=== PATIENT | female | born 1950 | race Caucasian/White ===

== ENCOUNTER 2019-05-04 09:57 | Outpatient (REF) | payer MEDICARE, BC, SELFPAY ==
[2019-05-04 21:18] LABS: HCT 42.6 % (36.0-46.0); HGB 14.1 g/dL (12.0-15.5); Mean Corp. HGB Concentration 33.1 g/dL (32.0-36.0); Mean Corpuscular Hemoglobin 31.3 pg (27.0-33.0); Mean Corpuscular Volume 94.5 fL (80-95); Mean Platelet Volume 10.3 fL (8.0-11.0); Platelet Count 277 x1000/uL (130-400); RBC 4.51 m/cumm (4.00-5.20); RBC Distribution Width 13.5 % (11.7-14.6); White Blood Cell Count 5.47 k/cumm (4.4-10.8)
[2019-05-04 21:28] LABS: ALT 25 U/L (14-59); AST 19 U/L (15-37); Albumin 3.5 g/dL (3.4-5.0); Alkaline Phosphatase 64 U/L (46-116); Anion Gap 8.2 mmol/L (3-11); BUN 18 mg/dL (7-18); Bilirubin, Total 0.8 mg/dL (0.2-1.0); CO2 27.8 mmol/L (21.0-32.0); CREATININE 0.79 mg/dL (0.55-1.02); Calcium 9.1 mg/dL (8.5-10.1); Calculated LDL 154 mg/dL; Chloride 106 mmol/L (98-107); Cholesterol 248 mg/dL (50-200); Glucose 86 mg/dL (70-100); HDL Cholesterol 82 mg/dL (40-60); Sodium 142 mmol/L (136-145); Total Protein 6.5 g/dL (6.4-8.2); Triglyceride 63 mg/dL (30-150)
== END 2019-05-04 10:17 ==
LOC: NCHCN 09:57
PROVIDERS: PCP Family Medicine; Visit Provider Family Medicine
DX: E78.5 Hyperlipidemia, unspecified (principal); R19.7 Diarrhea, unspecified
CPT/HCPCS: 80053; 80061; 85027

== ENCOUNTER 2019-07-05 02:21 | Outpatient (CLI) | payer MEDICARE, BC, SELFPAY ==
--- NOTE | 2019-07-05 09:12 | DI.MAMMO_ITS ---
EXAM: MG MAMMO SCREENING 60 MIN DUR CLINICAL HISTORY: SCREENING, PREVENTIVE HEALTH CARE Z00.00, PERS. HX BREAST CANCER Z85.3 TECHNIQUE: Bilateral full field digital CC and MLO mammographic images were obtained with 3D tomosyn thesis and utilizing computer aided detection (CAD). COMPARISON: Available for comparison. FINDINGS: Masses/Architectural Distortion: None seen. Surgical clips are seen in the left axilla. The patient is status post right lumpectomy. Microcalcifications: No suspicious pleomorphic-type are seen. IMPRESSION: 1. No significant interval change with no specific features of malignancy noted. 2. Unless there is more urgent need, screening mammography is recommended, as per [employer] [employer] guidelines. BI-RADS Cat 2 - Benign Findings Breast Density - Category C - Heterogeneously dense The findings were discussed with the patient on the date of the examination. The mammogram demonstrates the patient's breast tissue is dense. Dense breast tissue is very common a nd is not abnormal but dense breast tissue can make it harder to find cancer on a mammogram. Also, de nse breast tissue may increase their breast cancer risk. This information about the result of the [facility] mogram report was provided to the patient to raise their awareness. Use this report when you speak wi th the patient about their risks for breast cancer, which includes their family history. At that time , you may recommend for more screening tests (Ultrasound or MRI) as they might be useful based on the ir risk. A negative radiographic report should not delay biopsy if a dominant or clinically suspicious mass is present. Up to ten percent of cancers are not identified on mammography. A negative report may reinforce clinical impression. Adenosis and dense breasts may obscure an underlying neoplasm. False positive reports average 6 to 10%. Patient will receive a letter notifying them of these results.
== END 2019-07-05 02:41 ==
PROVIDERS: PCP Family Medicine; Visit Provider Family Medicine
DX: Z12.31 Encounter for screening mammogram for malignant neoplasm of breast (principal); Z85.3 Personal history of malignant neoplasm of breast; Z98.890 Other specified postprocedural states
CPT/HCPCS: 77063; 77067

== ENCOUNTER → 2020-01-04 10:00 | Outpatient (BNVA) | payer MEDICARE, BC, SELFPAY | PROVIDERS: PCP Family Medicine; Referring Provider Family Medicine; Visit Provider Surgery | DX: Z12.11 Encounter for screening for malignant neoplasm of colon (principal) | CPT/HCPCS: 99202 ==

== ENCOUNTER 2020-01-07 08:32 | Outpatient (CLI) | payer MEDICARE, BC, SELFPAY ==
[2020-01-08 03:21] LABS: COVID-19 RT-PCR UVMMC Result Negative (Negative)
== END 2020-01-07 08:52 ==
PROVIDERS: PCP Family Medicine; Visit Provider Surgery
DX: Z11.59 Encounter for screening for other viral diseases (principal)
CPT/HCPCS: U0003

== ENCOUNTER 2020-01-10 10:51 | Day surgery (SDC) | payer MEDICARE, BC, SELFPAY ==
[2020-01-10 10:58] VITALS: BP 115/56; PULSE 73; RESP 16; TEMP 37; O2SAT 100
[2020-01-10] MEDS: Lactated Ringers 1,000 ML 100 ML IV (11:22)
--- NOTE | 2020-01-10 13:12 | W.PM.DSUDISC ---
Discharge Plan Disposition Patient Disposition: HOME Condition: Good Discharge Details Reason For Visit: colon scope Attending Provider: Hortencia Chandler Primary Care Provider: Loan Ward Home Meds and New Rx's Prescriptions: No Action Vitamin D3 4,000 unit capsule 4,000 unit PO USEASDIRECTD RF: 0 ammonium lactate 12 % lotion 1 applic TP DAILY RF: 0 Discharge Instructions Additional Instructions: Findings:mild diverticular Dx. follow high fiber diet. avoid constipation adn straining to move bowels Follow up:none required. The patient does not require further Colon scopes, unless they develop changes in bowel habits or other new gastrointestinal complaints. Please call if you develop: fevers >101.5 Nausea or Vomiting Abdominal pain that is not transient DAY SURGERY UNIT POST COLONOSCOPY INSTRUCTIONS 1. Because there will be medication in your system for the next 24 hours, you may feel a little sleepy. Your coordination will be affected. Therefore: a. Do not drive or operate dangerous equipment for 24 hours. b. Do not drink alcohol beverages for 24 hours (not even beer). c. Plan to go home and rest for the day. 2. Generally there are no restrictions on your activity after a day or so has gone by, but you may feel a bit fatigued for a few days. 3 After you arrive home you may have a light meal and return to a normal diet as you can tolerate it without feeling sick to your stomach. 4. After surgery, you may feel pain or discomfort. This should be only transient, but if it persists please contact your doctor. 5. If there are any questions regarding the findings of your procedure, please feel free to contact your doctor. 6. If you are unable to contact your doctor with a problem, contact the hospital at [phone]. 7. Continue all your regular medications unless directed otherwise. I understand the above instructions and have no questions. Signature of Patient or Responsible Adult Escort Date/Time Name of Responsible Adult Escort Signature of Nurse Date/Time Activity:: no strenuous activity or lfiting over 20#'s x 24 hrs Diet:: small light meals x 24 hrs d Discharge Orders Discharge Orders: Discharge Order (Routine); Ordered 01/10/20 Ordered By: Hortencia Chandler
--- NOTE | 2020-01-10 13:13 | W.COLOREPORT ---
Date of service: 01/10/20 Time of Service: 13:13 Colonoscopy Report Date of procedure: 01/10/20 Pre-op diagnosis general: CRC screen Post-op diagnosis procedure note: other (mild diverticular Dx confined to sigmoid ) Procedure: CE Surgeon: Hortencia Chandler Anesthesia proc note operative: MAC Estimated blood loss (mL): 0 Pathology: none sent Complications: None Disposition: same day Prep: Miralax/Dulcolax Procedure Description: After informed consent was obtained the patient was taken to the procedure room and placed in a left decubitous position. Monitors were applied and a time out was done. The patients name, date of , procedure, allergies to medications and metal in their body was reviewed. The patient was then sedated. Once sedated and comfortable a rectal exam was done. External exam was normal. Internal exam revealed a normal sphincter tone and no palpable masses. The scope was then introduced and retrofelexed. No internal hemorrhoids were identified. The scope was then advanced to the cecum w/out difficulty. The TI and appendiceal orifice were identified. The prep was good. The scope was then slowly retracted over 8 minutes back into the rectum. Polyps- no. Mild diverticula confined to sigmoid colon. No active bleeding or infections. The scope was removed and the patient was woken up and taken back to Same day surgery in stable condition. The patient tolerated the procedure well and there were no immediate complications. Follow up: The patient does not require further Ce's unless they develop changes in bowel habits or other new gastrointestinal complaints.
[2020-01-10 13:45] VITALS: BP 113/59; PULSE 79; RESP 18; TEMP 36.6; O2SAT 97
== END 2020-01-10 14:35 | disposition home or self-care (01) ==
PROVIDERS: PCP Family Medicine; Visit Provider Surgery
PROC: 0DJD8ZZ Inspection of Lower Intestinal Tract, Via Natural or Artificial Opening Endoscopic (ICD-10-PCS; CPT 45378; principal; 2020-01-10 11:00)
DX: Z12.11 Encounter for screening for malignant neoplasm of colon (principal); K57.30 Diverticulosis of large intestine without perforation or abscess without bleeding
CPT/HCPCS: G0121; J2001

== ENCOUNTER 2021-08-19 01:02 | Outpatient (CLI) | payer MEDICARE, SELFPAY ==
--- NOTE | 2021-08-19 09:30 | DI.MAMMO_ITS ---
Exam(s) MG MAMMO SCREENING 60 MIN DUR EXAM: MG MAMMO SCREENING 60 MIN DUR CLINICAL HISTORY: SCREENING, Z12.39, H/O BREAST CA TECHNIQUE: Mammograms were interpreted according to the usual protocol including computer analysis w [employer] CAD system, tomosynthesis and C-view imaging. COMPARISON: FINDINGS: Patient has had a prior lumpectomy for breast carcinoma. This was presumably a right lumpectomy. No mass or clumped microcalcification identified in either breast. Current examination is compared wit h previous examinations including June 2019 and there has been no gross interval change in appear ance in comparison with the prior studies. IMPRESSION: No specific evidence of malignancy at this time. Routine screening examinations are suggested at yea rly intervals due to the history of breast carcinoma. BI-RADS Category 1 - Negative Breast Density - Category B - Scattered areas of fibroglandular density
== END 2021-08-19 01:22 ==
PROVIDERS: PCP Family Medicine; Visit Provider Family Medicine
DX: Z12.31 Encounter for screening mammogram for malignant neoplasm of breast (principal); Z85.3 Personal history of malignant neoplasm of breast; Z98.890 Other specified postprocedural states
CPT/HCPCS: 77063; 77067

== ENCOUNTER 2022-08-24 00:41 | Outpatient (CLI) | payer MEDICARE, SELFPAY ==
--- NOTE | 2022-08-24 11:02 | DI.MAMMO_ITS ---
Exam(s) MG MAMMO SCREENING 60 MIN DUR EXAM: MG MAMMO SCREENING 60 MIN DUR CLINICAL HISTORY: SCREENING, PERSONAL H/O BREAST CA,Z85.3.H/O LUMPECTOMY TECHNIQUE: Bilateral full field digital CC and MLO mammographic images were obtained with 3D tomosyn thesis and utilizing computer aided detection (CAD). COMPARISON: Available for comparison. FINDINGS: Masses/Architectural Distortion: The nodule seen in the posterior central right breast is unchanged. The patient is status post right lumpectomy. No suspicious masses or areas of architectural distort ion are seen. Microcalcifications: No suspicious pleomorphic-type are seen. Skin Thickening/Nipple Retraction: None. IMPRESSION: 1. No significant interval change with no specific features of malignancy noted. 2. Unless there is more urgent need, screening mammography is recommended, as per [place] [employer] guidelines. BI-RADS Category 2 - Benign Findings Breast Density - Category B - Scattered areas of fibroglandular density Breast density category C or D implies that the patient has dense breast tissue. Dense breast tissue is very common and is not abnormal but dense breast tissue can make it harder to find cancer on a ma mmogram. Also, dense breast tissue may increase their breast cancer risk. This information about the result of the mammogram report was provided to the patient to raise their awareness. Use this report when you speak with the patient about their risks for breast cancer, which includes their family hist ory. At that time, you may recommend for more screening tests (Ultrasound or MRI) as they might be us eful based on their risk. A negative radiographic report should not delay biopsy if a dominant or clinically suspicious mass is present. Up to ten percent of cancers are not identified on mammography. A negative report may reinforce clinical impression. Adenosis and dense breasts may obscure an underlying neoplasm. False positive reports average 6 to 10%. Patient will receive a letter notifying them of these results.
== END 2022-08-24 01:01 ==
PROVIDERS: PCP Family Medicine; Visit Provider Family Medicine
DX: Z12.31 Encounter for screening mammogram for malignant neoplasm of breast (principal)
CPT/HCPCS: 77063; 77067

== ENCOUNTER 2022-09-22 15:11 | Outpatient (REF) | payer MEDICARE, SELFPAY ==
[2022-09-22 15:51] LABS: Abs Immature Grans 0.03 10^3/uL (0.0-0.06); Absolute Basophil Count 0.05 10^3/uL (0.0-0.2); Absolute Eosinophil Count 0.14 10^3/uL (0.0-0.7); Absolute Lymphocyte Count 2.19 10^3/uL (1.2-3.4); Absolute Monocyte Count 0.66 10^3/uL (0.1-0.8); Absolute Neutrophil Count 4.89 10^3/uL (1.2-6.7); Basophils % 0.6; Eosinophils % 1.8; HCT 43.7 % (36.0-46.0); HGB 14.4 g/dL (11.2-15.7); Immature Grans % 0.4; Lymphocytes % 27.5; MCV 94 fL (80-95); MPV 10.1 fL (8.0-11.0); Monocytes % 8.3; Neutrophils % 61.4; Platelet Count 306 10^3/uL (130-400); RBC 4.64 10^6/uL (3.93-5.22); RDW 13.7 % (11.7-14.6); RDW-SD 47.5 fL; WBC 7.96 10^3/uL (4.4-10.8)
[2022-09-22 15:54] LABS: ESR 16 mm/hr (0-30)
[2022-09-22 16:01] LABS: ALT 35 U/L (14-59); AST 30 U/L (15-37); Albumin 3.8 g/dL (3.4-5.0); Alkaline Phosphatase 77 U/L (46-116); Anion Gap 6.1 mmol/L (3-11); BUN 17 mg/dL (7-18); Bilirubin, Total 0.5 mg/dL (0.2-1.0); CO2 29.9 mmol/L (21.0-32.0); CREATININE 0.9 mg/dL (0.55-1.02); Calcium 9.8 mg/dL (8.5-10.1); Chloride 106 mmol/L (98-107); Estimated GFR 67.08 (mL/min/1.73m2); Glucose 133 mg/dL (74-106); Potassium 4.8 mmol/L (3.5-5.1); Sodium 142 mmol/L (136-145)
== END 2022-09-22 15:12 | disposition home or self-care (01) ==
LOC: NCHCN 15:11
PROVIDERS: PCP Family Medicine; Visit Provider Family Medicine
DX: K62.89 Other specified diseases of anus and rectum (principal)
CPT/HCPCS: 80053; 85652; 85025

== ENCOUNTER → 2023-06-22 11:52 | Outpatient (CLI) | payer MEDICARE, SELFPAY ==
--- NOTE | 2023-06-22 14:54 | DI.RAD_ITS ---
Exam(s) XR CERVICAL SPINE COMP 4-5V EXAM: XR CERVICAL SPINE COMP 4-5V CLINICAL HISTORY: ACUTE NECK PAIN, M54.2. TECHNIQUE: 2D digital imaging was performed. Five images were obtained. AP, odontoid, lateral and bi lateral oblique images were obtained. COMPARISON: No exams were available for comparison FINDINGS: The odontoid is intact. The lateral masses are well aligned. There is mild reversal of the normal ce rvical lordosis centered at C5. There is disc space narrowing at C4-5, C5-6 and C6-C7. Endplate oste ophytes are seen at C5-C6. No acute fracture or subluxation is present. No significant neural foramin al stenosis is present. The cervical thoracic junction is well maintained. The prevertebral soft ti ssues are unremarkable. Lung apices are clear. IMPRESSION: Degenerative changes seen in the cervical spine. DATA REPOSITORY: RADIATION DOSE DELIVERED:
== END ==
PROVIDERS: PCP Family Medicine; Visit Provider Family Medicine
DX: M48.02 Spinal stenosis, cervical region (principal); M25.78 Osteophyte, vertebrae
CPT/HCPCS: 72050

== ENCOUNTER → 2023-08-10 00:57 | Outpatient (CLI) | payer MEDICARE, SELFPAY ==
[2023-08-10 12:35] LABS: CREATININE 0.9 mg/dL (0.55-1.02); Estimated GFR 66.67 (mL/min/1.73m2)
[2023-08-10] MEDS: Gadoterate meglumine 20 ML VIAL 10 ML IVP (12:38)
--- NOTE | 2023-08-10 13:00 | DI.MRI_ITS ---
Exam(s) MR IAC BRAIN WO/W EXAM: MR IAC BRAIN WO/W CLINICAL HISTORY: Left-sided sensorineural hearing loss,H90.3,h93.13,bilat tinnitus TECHNIQUE: Multiplanar multisequence MRI of the brain was performed. Both noninfused and contrast i nfused sequences were performed. Additional dedicated IAC sequences were performed IV Contrast injected was 10 cc Dotarem. COMPARISON: No exams were available for comparison FINDINGS: CEREBRAL PARENCHYMA: No evidence of intracranial hemorrhage, mass effect nor shift of midline structu re. No extraaxial fluid collections. Ventricles are not enlarged nor shifted. There is no significant focal signal abnormality in the cerebellar hemispheres nor within the kathrine, m idbrain, and thalami. There is no abnormal signal abnormality in the periventricular white matter. IAC's: There are no masses in the cerebellopontine angles and no enhancing intra canalicular acoustic neuroma-schwannoma. The 7th and 8th cranial nerves appear unremarkable within the bilateral interna l auditory canals. DWI: No areas of restricted diffusion to suggest acute ischemic event. SWI: No microhemorrhages evident. There are no ring enhancing lesions in the brain. There is no abnormal meningeal enhancement. PITUITARY GLAND: No mass nor parasellar abnormality. No obvious abnormality in the cavernous sinuses. FLOW VOIDS: The expected flow void are noted. No evidence of obvious aneurysm nor obvious vascular ma lformation. PARANASAL SINUSES: The visualized paranasal sinuses appear unremarkable. ORBITS: No obvious abnormal findings. IMPRESSION: 1. No significant intracranial findings on this MRI scan of the brain. 2. No abnormal enhancing intracranial findings. There are no ring enhancing lesions in the brain and there is no abnormal meningeal enhancement. 3. No evidence of acoustic neuroma-schwannoma. DATA REPOSITORY:
== END ==
PROVIDERS: PCP Family Medicine; Visit Provider Otolaryngology
DX: H90.3 Sensorineural hearing loss, bilateral (principal); H93.13 Tinnitus, bilateral
CPT/HCPCS: 70553; 82565

== ENCOUNTER 2023-08-25 03:25 | Outpatient (CLI) | payer MEDICARE, SELFPAY ==
[2023-08-29 11:18] LABS: Lyme Ab w Rflx to Lyme Confirm Negative (Negative)
[2023-08-30 00:51] LABS: Anaplasma phagocytophilum Negative (Negative); B. miyamotoi PCR Negative (Negative); Babesia divergens/MO-1 Negative (Negative); Babesia duncani Negative (Negative); Babesia microti Negative (Negative); Ehrlichia chaffeensis Negative (Negative); Ehrlichia ewingii/canis Negative (Negative); Ehrlichia muris eauclairensis Negative (Negative)
== END 2023-08-25 03:26 | disposition home or self-care (01) ==
LOC: LBO 03:25
PROVIDERS: PCP Family Medicine; Visit Provider Otolaryngology
DX: H90.3 Sensorineural hearing loss, bilateral (principal); H93.13 Tinnitus, bilateral
CPT/HCPCS: 36415; 87798; 86618

== ENCOUNTER 2023-10-26 16:40 | Outpatient (REF) | payer MEDICARE, SELFPAY ==
[2023-10-26 21:13] LABS: Clarity Clear (Clear)
[2023-10-26 21:14] LABS: Bilirubin Color Interference (Negative); Blood Color Interference (Negative); Glucose Color Interference mg/dL (Negative); Ketones Color Interference mg/dL (Negative); Leukocyte Esterase Color Interference (Negative); Nitrite Color Interference (Negative); Urobilinogen Color Interference mg/dL (Up to 0.2)
[2023-10-26 21:27] LABS: Bacteria Negative HPF (Negative); C & S Indicated? No; Crystals Mod Calcium Oxalate HPF (Negative); Epithelial Cells Negative HPF (Negative); Mucus Negative (Negative); RBC 0-2 HPF (0-2); WBC Negative HPF (0-5)
== END 2023-10-26 16:41 | disposition home or self-care (01) ==
LOC: NCHCN 16:40
PROVIDERS: PCP Family Medicine; Visit Provider Family Medicine
DX: R30.0 Dysuria (principal)
CPT/HCPCS: 81003; 81015

== ENCOUNTER 2024-05-22 15:16 | Outpatient (REF) | payer MEDICARE, SELFPAY ==
--- OUTSIDE RECORDS SUMMARY | 2024-05-22 15:27 | XMS_ITS | Encounter Summary ---
[place] [address] Care Team Providers Care Harp Maker Name Role Phone Hi Valenzuela MD Primary Care Provider [phone] Encounter Details Date Type Department Care Team (Late st Contact Info) Description 04/24/2024 Telephone [place] [phone] Viola Parsons Social History Tobacco Use Types Packs/Day Years Used Date Smoking Tobacco: Never Smokeless Tobacco: Never Sex and Gender Information Value Date Recorded Sex Assigned at Not on file Gender Identity Not on file Sexual Orientation Not on file documented as of this encounter Miscellaneous Notes * Telephone Encounter - Viola Parsons - 04/24/2024 9:13 AM EDT Called and spoke to patient at [phone] calling regarding fuv with Dr. Bear booked for 06/04 - we do need to reschedule as he will be in the operating room this day Testing left as scheduled Follow up moved to next available that works for patient: Future Appointments Date Time Provider Department Center 06/04/2024 9:30 AM Ailyn Chun AUD [facility] AUD[facility] 06/04/2024 12:30 PM Jeni Mcdonnell AUD [facility] AUD[facility] 07/04/2024 10:20 AM Parth Bear MD [facility] ELIAS [facility] documented in this encounter Plan of Treatment Upcoming Encounters Date Type Department Care Team (Late st Contact Info) Description 06/04/2024 9:30 AM EDT Office Visit Audiology at [address] [phone] Ailyn Chun AUD [facility] [place] [address] 06/04/2024 12:30 PM EDT Office Visit Audiology at [address] [phone] eJni Mcdonnell [facility] [place] [address] 07/04/2024 10:20 AM EST Office Visit [place] [phone] Parth Bear MD [facility] [place] [address] documented as of this encounter Visit Diagnoses Not on filedocumented in this encounter Care Teams Harp Maker Relationship Specialty Start Date End Date Hi Valenzuela MD [address] [place] [address] PCP - General Family Medicine 08/26/23 documented as of this encounter
--- OUTSIDE RECORDS SUMMARY | 2024-05-22 15:27 | XMS_ITS | Encounter Summary ---
Author Organization [facility] Address [address] [place] [address] Care Team Providers Care Front Desk Name Role Phone Unavailable Primary Care Provider Unavailabl e Encounter Details Date Type Department Care Team (Latest Contact Info) Description 11/20/2013 14:15 EDT - 11/20/2013 23:59 EDT Hospital Encounter [facility] [address] [place] [address] Unknown, Provider, Discharge Disposition: Home or Self Care Social History Tobacco Use Types Packs/Day Years Used Date Smoking Tobacco: Never Assessed Sex and Gender Information Value Date Recorded Sex Assigned at Not on file Gender Identity Not on file Sexual Orientation Not on file documented as of this encounter Discharge Disposition Disposition Code Departure Means Destination Home or Self Retirement documented in this encounter Plan of Treatment Not on file documented as of this encounter Visit Diagnoses Not on filedocumented in this encounter
--- OUTSIDE RECORDS SUMMARY | 2024-05-22 15:27 | XMS_ITS | Encounter Summary ---
Author Organization [facility] [place] [address] Care Team Providers Care Loom Operator Name Role Phone Amador Holland MD Primary Care Provider Encounter Details Date Type Department Care Team (Late st Contact Info) Description 08/10/2023 Ancillary Procedure Radiology Library at [facility] [place] [phone] Amador Holland MD [address] [phone] Social History Tobacco Use Types Packs/Day Years Used Date Smoking Tobacco: Never Smokeless Tobacco: Never Sex and Gender Information Value Date Recorded Sex Assigned at Not on file Gender Identity Not on file Sexual Orientation Not on file documented as of this encounter Plan of Treatment Upcoming Encounters Date Type Department Care Team (Late st Contact Info) Description 06/04/2024 9:30 AM EDT Office Visit Audiology at [address] [phone] Ailyn Chun, [facility] [place] [address] 06/04/2024 12:30 PM EDT Office Visit Audiology at [address] [phone] Jeni Mcdonnell [facility] [place] [address] 07/04/2024 10:20 AM EST Office [place] [phone] Parth Bear MD [facility] [place] [address] documented as of this encounter Procedures Procedure Name Priority Date/Time Associated Diagnosis Comments FILM LIBRARY STORAGE ONLY MR HEAD Routine 08/10/2023 12:00 AM EST documented in this encounter Results * Film Library- Storage Only MR Head (08/10/2023 12:00 AM EST) Narrative [facility] - 08/24/2023 3:12 PM EST This exam is auto-finalizing. It's purpose is for storage only. Amador Holland MD IMG FILM LIBRARY ORD ERABLES [place], [place] documented in this encounter Visit Diagnoses Not on filedocumented in this encounter Care Teams Loom Operator Relationship Specialty Start Date End Date Amador Holland MD [address] [address] PCP - General 07/07/10 08/25/23 documented as of this encounter
--- OUTSIDE RECORDS SUMMARY | 2024-05-22 15:27 | XMS_ITS | Encounter Summary ---
Author Organization [facility] Address [address] [place] [address] Care Team Providers Care Property And Equipment Clerk Name Role Phone Kimberlee Watters MD Primary Care Provider Unavailab le Encounter Details Date Type Department Care Team (Latest Contact Info) Description 06/04/2015 13:02 EDT - 06/04/2015 23:59 EDT Hospital Encounter [facility] [address] [place] [address] Unknown, Provider, Discharge Disposition: Home or Self Care Social History Tobacco Use Types Packs/Day Years Used Date Smoking Tobacco: Never Assessed Sex and Gender Information Value Date Recorded Sex Assigned at Not on file Gender Identity Not on file Sexual Orientation Not on file documented as of this encounter Discharge Disposition Disposition Code Departure Means Destination Home or Self [facility]itent[facility] documented in this encounter Plan of Treatment Not on file documented as of this encounter Visit Diagnoses Not on filedocumented in this encounter Care Teams Property And Equipment Clerk Relationship Specialty Start Date End Date Kimberlee Watters MD PCP - General 11/29/13 06/07/16 documented as of this encounter
--- OUTSIDE RECORDS SUMMARY | 2024-05-22 15:27 | XMS_ITS | Encounter Summary ---
Author Organization [facility] Address [address] [place] [address] Care Team Providers Care Produce Weigher Name Role Phone Kimberlee Watters MD Primary Care Provider Marissa Gautam Primary Care Provider [phone] Encounter Details Date Type Department Care Team (Late st Contact Info) Description 12/13/2011 Historical Results Only [facility] Lab - Main [address] [phone] Amador Truong MD [address] [place] [phone] Social History Tobacco Use Types Packs/Day Years Used Date Smoking Tobacco: Never Assessed Sex and Gender Information Value Date Recorded Sex Assigned at Not on file Gender Identity Not on file Sexual Orientation Not on file documented as of this encounter Plan of Treatment Not on file documented as of this encounter Procedures Procedure Name Priority Date/Time Associated Diagnosis Comments PAP TEST Routine 12/13/2011 documented in this encounter Results * PAP TEST (12/13/2011) 12/13/2011 12/14/2011 9:5 0 EDT Narrative [facility] - 12/16/2011 15:59 EDT Blind pap - Cervical cells may or may not be present. ----- ------- Name: BOBANAID Wyatt ? : 46 ?Age/Sex: 69/F ?Unit#: [id number] ? Loc: LAB.OPX ? Status: REG REF ?? Reg Date: 12/13/11 ? Pt.Phone Number: ? ----- ------- Specimen: [id number] ?STATUS: SOUT ?Spec Date:12/13/11 ? Physician Copies: ?Amador Truong MD ?? Tissues: ? Cervical/Endo Pap ?Irina Lindsay MD ? CPT: 54699 ?? Units: ??1 ----- ------- ? CYTOLOGY DIAGNOSIS SPECIMEN ADEQUACY: ?Satisfactory for evaluation. Transformation zone component ABSENT. GENERAL CATEGORIZATION: ?Negative for Intraepithelial Lesion or Malignancy DESCRIPTIVE DIAGNOSIS: ? Negative for Intraepithelial Lesion or Malignancy. RECOMMENDATIONS/COMMENTS: ?None. ?? PREOP DX/CLINICAL HISTORY ?BLIND PAP DONE ----- ------- ORDER QUERIES: LMP: ? - ? Post ?PREVIOUS ATYPICAL: N BCP/HRT? ?? Rad Rx? ?? IUD?PAP PLUS HPV? N ??REFLEX TO HR-HPV IF ASCUS ?? REFLEX TO HPV 16/18 IF HPV POS/PAP NEG ?? HPV REGARDLESS?RFLX HPV IF LSIL ?? IF ASCUS DO HPV? Y Signed Yanira Franco CT(ASCP) 12/16/11 By the signature above, the attending physician certifies that he/she has personally conducted a gross and/or microscopic examination of the described specimens and rendered or confirmed the above diagnosis. Test Performed by [facility], [address] [id number] Art Framing Manager: Isa Seaman MD PHD ----- ------- Amador Truong MD PATHOLOGY ORDERABLES [facility] documented in this encounter Visit Diagnoses Not on filedocumented in this encounter Care Teams Produce Weigher Relationship Specialty Start Date End Date Kimberlee Watters MD PCP - General 11/29/13 06/07/16 Marissa Elliott PA PCP - General 06/08/16 06/01/21 documented as of this encounter
--- OUTSIDE RECORDS SUMMARY | 2024-05-22 15:27 | XMS_ITS | Encounter Summary ---
Author Organization [facility] [place] [address] Care Team Providers Care Network Planner Name Role Phone Hi Valenzuela MD Primary Care Provider [phone] Encounter Details Date Type Department Care Team (Late st Contact Info) Description 10/11/2023 Telephone [place] [phone] Vickie Allred RN Social History Tobacco Use Types Packs/Day Years Used Date Smoking Tobacco: Never Smokeless Tobacco: Never Sex and Gender Information Value Date Recorded Sex Assigned at Not on file Gender Identity Not on file Sexual Orientation Not on file documented as of this encounter Miscellaneous Notes * Telephone Encounter - Vickie Allred RN - 10/11/2023 3:59 PM EST Patient left VM asking which pharmacy her prescription for the triamterene- hydroCHLOROthiazide (Dyazide) 37.5-25 mg capsule was sent to? Attempt to call patient back. VM left stating prescription sent to [facility]. documented in this encounter Plan of Treatment Upcoming Encounters Date Type Department Care Team (Late st Contact Info) Description 06/04/2024 9:30 AM EDT Office Visit Audiology at [address] [phone] Ailyn Chun [facility] [place] [address] 06/04/2024 12:30 PM EDT Office Visit Audiology at [address] [phone] [facility] [place] [address] 07/04/2024 10:20 AM EST Office Visit [place] [phone] [facility] [place] [address] documented as of this encounter Visit Diagnoses Not on filedocumented in this encounter Care Teams Network Planner Relationship Specialty Start Date End Date Hi Valenzuela MD [address] [place] [address] PCP - General Family Medicine 08/26/23 documented as of this encounter
--- OUTSIDE RECORDS SUMMARY | 2024-05-22 15:27 | XMS_ITS | Encounter Summary ---
Author Organization [facility] Address [address] [place] [address] Care Team Providers Care Supervisor Real Estate Office Name Role Phone Loan Ward MD Primary Care Provider [phone] Encounter Details Date Type Department Care Team (Late st Contact Info) Description 08/26/2023 Lab Requisition [facility] Pathology & Laboratory Medicine - [address] [address] Outr Resulting Lab, Provider Social History Tobacco Use Types Packs/Day Years Used Date Smoking Tobacco: Never Alcohol Use Standard Drinks/Week Comments Yes 0 (1 standard drink = 0.6 oz pur e alcohol) Sex and Gender Information Value Date Recorded Sex Assigned at Not on file Gender Identity Not on file Sexual Orientation Not on file documented as of this encounter Plan of Treatment Not on file documented as of this encounter Procedures Procedure Name Priority Date/Time Associated Diagnosis Comments LYME AB Routine 08/25/2023 13:21 EST documented in this encounter Results * LYME AB (08/25/2023 13:21 EST) Lyme Ab Negative Negative 08/29/2023 11:13 EST [facility] Blood VENOUS BLOOD / Unknown 08/25/2023 13:21 EST 08/26/2023 17:49 EST Provider Outr Resulting Lab IMMUNOLOGY A ND SEROLOGY ORDERABLES [facility] [address] [place] [address] documented in this encounter Visit Diagnoses Not on filedocumented in this encounter Care Teams Supervisor Real Estate Office Relationship Specialty Start Date End Date Loan Ward MD [address] [place] [phone] PCP - General Family Medicine - Primary Care 06/02/21 documented as of this encounter
--- OUTSIDE RECORDS SUMMARY | 2024-05-22 15:27 | XMS_ITS | Clinical Summary ---
Author Organization [facility] Address [facility] [place] [address] Care Team Providers Care Aviation All Source Intelligence Name Role Phone Hi Valenzuela MD Primary Care Provider [phone] Allergies Active Allergy Reactions Criticality Noted Date Comments Zolpidem 06/07/2016 Medications Medication Sig Dispensed Refills Start Date End Date Status fish oil-omega-3 fatty acids 1,000 mg Capsule Take 2 g by mouth daily. Active cholecalciferol, Vitamin D3, 5,000 unit Tablet Take by mouth. Active cetirizine (ZYRTEC) 10 mg Tablet Take 10 mg by mouth daily. Active diphenhydrAMINE (BENADRYL) 25 mg Capsule Take 25 mg by mouth every 6 hours as needed for Itching. Active valACYclovir (Valtrex) 1 gram tablet 09/26/2023 Active triamterene-hydroCHLO ROthiazide (Dyazide) 37.5-25 mg capsule Take 1 capsule by mouth every morning. 90 tablet 3 09/28/2023 Active Active Problems No known active problems Encounters Date Type Department Care Team Description 04/24/2024 Telephone [place] [phone] Viola Parsons from Last 3 Months Social History Tobacco Use Types Packs/Day Years Used Date Smoking Tobacco: Never Smokeless Tobacco: Never Sex and Gender Information Value Date Recorded Sex Assigned at Not on file Gender Identity Not on file Sexual Orientation Not on file Last Filed Vital Signs Vital Sign Reading Time Taken Comments Blood Pressure 119/52 02/08/2018 10:49 AM EDT Pulse 62 02/08/2018 10:49 AM EDT Temperature - - Respiratory Rate - - Oxygen Saturation - - Inhaled Oxygen Concentration - - Weight 52.9 kg (116 lb 9.6 oz) 09/28/2023 8:57 A M EST Height 162.6 cm (5' 4) 09/28/2023 8:57 AM EST Body Mass Index 20.01 09/28/2023 8:57 AM EST Plan of Treatment Upcoming Encounters Date Type Department Care Team (Late st Contact Info) Description 06/04/2024 9:30 AM EDT Office Visit Audiology at [address] [phone] Ailyn Chun, [facility] [place] [address] 06/04/2024 12:30 PM EDT Office Visit Audiology at [address] [phone] Jeni Mcdonnell [facility] [place] [address] 07/04/2024 10:20 AM EST Office Visit [place] [phone] Parth Bear MD [facility] [place] [address] Health Maintenance Due Date Last Done Comments Hepatitis C Screening 1968 Tetanus/Diphtheria/Pertussis Vaccines (1 - Tdap) 05/03 Zoster vaccine (1 of 2) 1998 Advance Directive 2003 Bone Density Scan 2013 Pneumoccocal Vaccine: 65+ (1 of 1 - PCV) 2013 Covid-19 Vaccine (1 - 2022- season) 2024 Influenza (Flu) vaccine (1 o f 1 - Influenza standard series) 04/15/2024 Care Teams Aviation All Source Intelligence Relationship Specialty Start Date End Date Hi Valenzuela MD [address] [place] [address] PCP - General Family Medicine 08/26/23
--- OUTSIDE RECORDS SUMMARY | 2024-05-22 15:27 | XMS_ITS | Encounter Summary ---
Author Organization [facility] Address [address] [place] [address] Care Team Providers Care Boat Joiner Helper Name Role Phone Marissa Elliott Primary Care Provider [phone] Loan Ward MD Primary Care Provider Encounter Details Date Type Department Care Team (Late st Contact Info) Description 01/07/2020 Lab Requisition [facility] Pathology & Laboratory Medicine - [address] [id number] Outr Resulting Lab, Provider Social History Tobacco [...] Procedure Name Priority Date/Time Associated Diagnosis Comments ZZCOVID-19 TEST [facility] PCR Today 01/07/2020 10:35 EDT COVID-19 TESTING Routine 01/07/2020 10:3 5 EDT documented in this encounter Results * COVID-19 TEST [facility] PCR (01/07/2020 10:35 EDT) Swab ENTIRE NASOPHARYNX / Unknown 01/07/2020 10:35 EDT 01/07/2020 19:48 EDT Provider Outr Resulting Lab MICROBIOLOGY - GENERAL ORDERABLES [facility] [address] [place] [address] * COVID-19 TESTING (01/07/2020 10:35 EDT) COVID-19 rt-PCR Result Negative Negative 01/08/2020 3:15 EDT [facility] Comment: This test has not been FDA cleared or approved. This test has been authorized by FDA under an EUA for use by authorized laboratories. This test has been authorized only for detection of nucleic acid from 2019-nCoV, not for any other viruses or pathogens. This test is only authorized for the duration of the declaration that circumstances exist justifying the authorization of emergency use of in vitro diagnostic tests for detection and/or diagnosis of 2019-nCoV under section 564(b)(1) of Act, 21 U.S.C ?? 360bbb-3(b) (1), unless the authorization is terminated or revoked sooner. Negative results do not preclude 2019-nCoV infection and should not be used as the sole basis for treatment or other patient management decisions. Negative results must be combined with clinical observations, patient history, and epidemiological information. Performed on the Moodsnapher Fusion instrument Performing Lab [facility] Lab 01/08/2020 3:15 EDT [facility] Swab ENTIRE NASOPHARYNX / Unknown 01/07/2020 10:35 EDT 01/07/2020 19:48 EDT Provider Outr Resulting Lab MICROBIOLOGY - GENERAL ORDERABLES Performing Organization Address City/[facility] Co de Phone Number [facility] [address] [place] [address] documented in this encounter Visit Diagnoses Not on filedocumented in this encounter Care Teams Boat Joiner Helper Relationship Specialty Start Date End Date Marissa Elliott PA PCP - General 06/08/16 06/01/21 Loan Ward MD [address] [place] [phone] PCP - General Family Medicine - Primary Care 06/02/21 documented as of this encounter
--- OUTSIDE RECORDS SUMMARY | 2024-05-22 15:27 | XMS_ITS | Encounter Summary ---
Author Organization [facility] Address [facility] [place] [address] Care Team Providers Care Senior Tax Specialist Name Role Phone Amador Holland MD Primary Care Provider [phone] Reason for Referral * Consultation (Routine) - Closed Specialty Diagnoses / Procedures Referred By Contac t Referred To Contact Otolaryngology Diagnoses Asymmetrical sensorineural hearing loss Tinnitus, bilateral Prashant Llamas MD [address] [place] [address] [place] [address] Parth Bear MD [facility] [place] [address] Referral ID Status Reason Start Date Expiration Date V isits Requested Visits Authorized [id number] Closed Consult, Test & Treat 08/25/2023 08/24/2024 1 1 Encounter Details Date Type Department Care Team (Latest Contact Info) Description 08/25/2023 Transcribe Orders eDH Incoming Referrals [phone] Prashant Llamas MD [address] [place] [phone] Asymmetrical sensorineural hearing loss; Tinnitus, bilateral Social History Tobacco Use Types Packs/Day Years [...] 9:30 AM EDT Office Visit Audiology at [address] [phone] Ailyn Chun [facility] [place] [address] 06/04/2024 12:30 PM EDT Office Visit Audiology at [address] [phone] Jeni Mcdonnell [facility] [place] [address] 07/04/2024 10:20 AM EST Office [place] [phone] Parth Bear MD [facility] [place] [address] Scheduled Referrals Name Type Priority Associated Diagnoses Orde r Schedule Referral to ENT Outpatient Referral Routine Asymmetrical sensorineural hearing loss Tinnitus, bilateral Ordered: 08/25/2023 documented as of this encounter Visit Diagnoses Diagnosis Asymmetrical sensorineural hearing loss Sensorineural hearing loss, asymmetrical Tinnitus, bilateral Unspecified tinnitus documented in this encounter Care Teams Senior Tax Specialist Relationship Specialty Start Date End Date Amador Holland MD [address] [address] PCP - General 07/07/10 08/25/23 documented as of this encounter
--- OUTSIDE RECORDS SUMMARY | 2024-05-22 15:27 | XMS_ITS | Encounter Summary ---
Author Organization Health system Address [address] [place] [address] Care Team Providers Care Minesweeping Officer Name Role Phone Marissa Elliott Primary Care Provider [phone] Reason for Visit * Reason Comments Otalgia RT ear pain, intermi ttent discomfort. Sympt. since , Lt eat seems fine now, but PT states LT ear may have hurt when symptoms started. Pt denies drainage/infection. Encounter Details Date Type Department Care Team (Latest Contact Info) Description 06/09/2016 11:10 EDT Office Visit [facility] ENT - [address] [address] Unknown, MD Guero Joseph Morataya MD [address] [place] [address] [address] [place] [phone] Sensorineural hearing loss of left ear (Primary Dx); Otalgia, right Social History Tobacco Use Types Packs/Day Years Used Date Smoking Tobacco: Never Tobacco Cessation:Counseling Given: No Alcohol Use Standard Drinks/Week Comments Yes 0 (1 standard drink = 0.6 oz pur e alcohol) Sex and Gender Information Value Date Recorded Sex Assigned at Not on file Gender Identity Not on file Sexual Orientation Not on file documented as of this encounter Last Filed Vital Signs Vital Sign Reading Time Taken Comments Blood Pressure 112/70 06/09/2016 1056 EDT Pulse 65 06/09/2016 1056 EDT Temperature 36.6 ??C (97.8 ??F) 06/09/2016 1056 EDT Respiratory Rate - - Oxygen Saturation - - Inhaled Oxygen Concentration - - Weight 55.8 kg (123 lb) 06/09/2016 1056 EDT Height 160 cm (5' 3) 06/09/2016 1056 EDT Body Mass Index 21.79 06/09/2016 1056 EDT documented in this encounter Progress Notes * Joseph Morataya MD - 06/09/2016 1110 EDT This is a consult to Marissa Elliott for evaluation of right ear pain. HISTORY OF PRESENT ILLNESS: A 66-year-old female with a 5 to 6 month history of intermittent right ear pain that comes and goes, lasts for only 10 to 15 seconds, mild severity, that is currently asymptomatic. No associated ear symptoms, no hearing loss, fullness, tinnitus, vertigo. No prior historyof trauma. 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 She has a dental splint but does not wear i. No history of head injury, meningitis, no loud noise exposure. No family history of hereditary hearing loss and no ototoxic exposure. PAST MEDICAL HISTORY: Significant for breast cancer. FAMILY HISTORY: Significant for hearing loss. SOCIAL HISTORY: The patient is a nonsmoker. She has drug allergies to AMBIEN. Current medications include Imodium, lactate, antipyrine benzocaine drops, Ciprodex vitamin D, multivitamins, fish oil. REVIEW OF SYSTEMS: Otherwise negative for complete review of all systems. PHYSICAL EXAM: General: Well-developed, well-nourished, pleasant, cooperative adult female in no acute distress. Normal voice. Vital signs: Height 63 inches, weight 123, blood pressure 112/70, pulse 65, temperature 97.8. No reportable pain. The face is normal without lesions. No tenderness. Salivary glands are normal. Facial strength is symmetric. Eye exam is normal. Ears: External ears are normal, canals are clear. The tympanic membranes are normal. An audiogram was performed, which reveals mild sensorineural hearing loss, asymmetric, worse in the left ear. SRTs are 10 decibels bilaterally, excellent word discrimination, normal impedance. Nose: Nasal dorsum is midline, the airway is patent. Oral cavity reveals wearing and smoothing of the occlusal surface of the teeth but no TMJ tenderness, clicking or popping. Posterior pharynx is clear. Neck: No pathologic lymphadenopathy. Trachea ismidline. Thyroid is normal. Chest is clear to auscultation. Heart: Regular rate and rhythm. IMPRESSION: Right otalgia of unclear etiology. Possible referred otalgia secondary to bruxism and temporomandibular joint disorder as her symptoms tend to be worse first thing in the morning or waking up with ear pain. RECOMMENDATION: The patient will follow up with her dentist or a TMJ specialist, may consider wearing her splint. For the left asymmetric sensorineural hearing loss, rule out retrocochlear pathology,options of MRI scan, audiometric brain stem evoked potential testing and followup audiogram were offered to the patient and she has chosen for a followup repeat audiogram in 1 year. cc: Marissa Elliott documented in this encounter Plan of Treatment Not on file documented as of this encounter Procedures Procedure Name Priority Date/Time Associated Diagnosis Comments PROCEDURE REPORTS - SCANNED 06/11/2016 12:24 EDT documented in this encounter Results * PROCEDURE REPORTS - SCANNED (06/11/2016 12:24 EDT) 06/11/2016 12:2 4 EDT Scan 2 Dock Builder PROCEDURE/MINOR STEFFANY GICAL ORDERABLES documented in this encounter Visit Diagnoses Diagnosis Sensorineural hearing loss of left ear- Primary Sensorineural hearing loss, unilateral Otalgia, right documented in this encounter Historical Medications * This list may reflect changes made after this encounter. Medication Sig Dispensed Refills Start Date End Date OMEGA-3 FATTY ACIDS/FISH OIL (OMEGA 3 FISH OIL ORAL) Take by mouth. added in this encounter Care Teams Minesweeping Officer Relationship Specialty Start Date End Date Marissa Elliott PA PCP - General 06/08/16 06/01/21 documented as of this encounter
--- OUTSIDE RECORDS SUMMARY | 2024-05-22 15:27 | XMS_ITS | Referral Summary ---
Author Organization [facility] Address [address] [place] [address] Care Team Providers Care Rn Prior Authorization Name Role Phone Loan Ward MD Primary Care Provider [phone] Allergies Active Allergy Reactions Criticality Noted Date Comments Zolpidem 06/07/2016 Medications Medication Sig Dispensed Refills Start Date End Date Status ergocalciferol (DRISDOL; VITAMIN D2) 50,000 unit capsule Take 50,000 Units by mouth once a week. Active ammonium lactate (LAC-HYDRIN) 12 % cream Apply topically as needed. rub in to affected area well Active MULTIVITAMIN ORAL Take by mouth. Act bubba antipyrine-benzocaine 5.5-1.4 % drops Place in ear(s). Act bubba ciprofloxacin-dexamet hasone (CIPRODEX) otic suspension Place 4 Drops in ear(s) 2 times daily. Active OMEGA-3 FATTY ACIDS/FISH OIL (OMEGA 3 FISH OIL ORAL) Take by mouth. Acti ve Active Problems Problem Noted Date Diagnosed Date Sensorineural hearing loss of left ear 6 Right ear pain 06/09/2016 Social History Tobacco Use Types Packs/Day Years [...] - Weight 55.8 kg (123 lb) 06/09/2016 105 EDT Height 160 cm (5' 3) 06/09/2016 105 EDT Body Mass Index 21.79 06/09/2016 1056 EDT Plan of Treatment Not on file Care Teams Rn Prior Authorization Relationship Specialty Start Date End Date Loan Ward MD [address] [place] [phone] PCP - General Family Medicine - Primary Care 06/02/21
--- OUTSIDE RECORDS SUMMARY | 2024-05-22 15:27 | XMS_ITS | Clinical Summary ---
Author Organization [facility] Address [address] [place] [address] Care Team Providers Care Epic Director Name Role Phone Loan Ward MD Primary Care Provider [phone] Allergies Active Allergy Reactions Criticality Noted Date [...] left ear 6 Right ear pain 06/09/2016 Medical History Medical History Date Comments Cancer ([facility] breast Family History Medical History Relation Comments Hearing Loss Mother Relation Status Comments Mother Social History Tobacco Use Types Packs/Day Years Used Date Smoking Tobacco: Never Tobacco Cessation:Counseling Given: No Alcohol Use Standard Drinks/Week Comments Yes 0 (1 standard drink = 0.6 oz pur e alcohol) Sex and Gender Information Value Date Recorded Sex Assigned at Not on file Gender Identity Not on file Sexual Orientation Not on file Obstetrics History Last Filed Vital Signs Vital Sign Reading [...] 21.79 06/09/2016 1056 EDT Plan of Treatment Health Maintenance Due Date Last Done Comments Hepatitis C Screen 1950 RSV Immunization ( o r 60+ Years) (1 - 1-dose 60+ series) 2008 Fall Risk Screening 2013 COVID-19 Vaccine (2022-24 season) 2023 Care Teams Epic Director Relationship Specialty Start Date End Date Loan Ward MD [address] [place] [address] PCP - General Family Medicine - Primary Care 06/02/21
--- OUTSIDE RECORDS SUMMARY | 2024-05-22 15:27 | XMS_ITS | Encounter Summary ---
Author Organization [facility] Address [facility] [place] [address] Care Team Providers Care Marketing Strategy Analyst Name Role Phone Hi Valenzuela MD Primary Care Provider [phone] Reason for Visit * Reason Comments Hearing Loss Bilat tinnitus for l kandace time. L ear blocked since 05/2023, can't recall if it was sudden * Consultation (Routine) - Closed Specialty Diagnoses / Procedures Referred By Contac t Referred To Contact Otolaryngology Diagnoses Asymmetrical sensorineural hearing loss Tinnitus, bilateral Prashant Llamas MD [address] [place] [address] [place] [address] Parth Bear MD [facility] [place] [address] Referral ID Status Reason Start Date Expiration Date V isits Requested Visits Authorized [id number] Closed Consult, Test & Treat 08/25/2023 08/24/2024 1 1 Encounter Details Date Type Department Care Team (Latest Contact Info) Description 09/28/2023 9:00 AM EST Office [place] [address] Parth Bear MD [facility] [place] [address] Cochlear hydrops of left ear; Asymmetrical sensorineural hearing loss; Tinnitus of both ears Social History Tobacco Use Types Packs/Day Years Used Date Smoking Tobacco: Never Smokeless Tobacco: Never Sex and Gender Information Value Date Recorded Sex Assigned at Not on file Gender Identity Not on file Sexual Orientation Not on file documented as of this encounter Last Filed Vital Signs Vital Sign Reading Time Taken Comments Blood Pressure - - Pulse - - Temperature - - Respiratory Rate - - Oxygen Saturation - - Inhaled Oxygen Concentration - - Weight 52.9 kg (116 lb 9.6 oz) 09/28/2023 8:57 A M EST Height 162.6 cm (5' 4) 09/28/2023 8:57 AM EST Body Mass Index 20.01 09/28/2023 8:57 AM EST documented in this encounter Progress Notes * Parth Bear MD - 09/28/2023 9:00 AM EST [facility] Otolaryngology - Head and Neck Surgery Parth Bear MD 09/27/23 7:31 PM [place] [phone] Office Patient Name: Anaid Valentin Date of : 1950 PCP: Hi Valenzuela MD Chief Complaint: hearing loss History of Present Illness: Anaid Valentin is a 73 y.o. year old female who was seen today at the request of Prashant Llamas in consultation for cochlear hydrops, left ear. Patient reports an approximate 4-year history of fluctuating hearing and aural pressure left ear. No obvious triggers. Progressive hearing decline left ear over time, with acute loss Jul 2023, followed by modest spontaneous subjective improvement. Hearing has remained subjectively overall stable since at least Aug 2023. She endorses bilateral nonpulsatile subjective tinnitus bilaterally, left greater than right. Tinnitus left ear characterized as roaring. Tinnitus very bothersome on occasion, but not overtly limiting. Patient does endorse a past history of vertigo approximately 10 years ago which seemed to persist for a couple of days. Denies any obvious hearing loss or referable otologic symptoms with this event.Denies any significant dizziness or vertigo recurrence since this time. Denies history of headaches or migraine. Denies visual complaints or focal neurologic concerns. No personal or known family history of autoimmune disease. Denies any known family history of significant hearing loss. Denies otalgia, otorrhea, history of recurrent ear infections or prior ear surgery.Denies any significant head trauma history. No significant hazardous noise exposure history. No known history of Lyme disease or syphilis. Underwent negative Lyme testing. 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 Takes valacyclovir as needed with appreciable benefit by report. Does not wear hearing aids. Past medical history notable for history of breast cancer age 38, treated via surgical lumpectomy followed by XRT. Denies additional significant past medical or surgical history. Patient has been followed for suspected cochlear hydrops left. Recently tried on course of oral prednisone Jul 2023 following suspected sudden onset SNHL left, without appreciable benefit in hearing.Was also referred for dedicated MRI. Has continued with restricted sodium diet without appreciable changes. Diuretic also previously offered, though patient was hesitant. Patient subsequently referred to Otology for further evaluation and discussion of possible management options. Audiogram 04/22/2020 reviewed. Normal sloping to mild high-frequency sensorineural hearing loss right. Mild low-frequency rising to normal sloping to mild-moderate high-frequency sensorineural hearing loss left. SRT 5 dB bilaterally. Excellent bilateral discrimination. Normal bilateral tympanometry. Audiogram 07/20/2023. Normal sloping to mild-moderate high-frequency sensorineural hearing loss right. Moderate low-frequency rising to normal sloping to moderate high-frequency sensorineural hearing loss left. SRT 15 dB right, 30 dB left. Discrimination 100% at 55 dB right, 80% at 70 dB left. Audiogram 08/23/2023 reviewed. Normal sloping to mild high-frequency sensorineural hearing loss right. Moderate flat sensorineuralhearing loss left. SRT 15 dB right, 50 dB left. Discrimination 100% at 55 dB right, 40% at 90 dB left. Normal bilateral tympanometry. MRI brain / IACs with contrast 08/10/2023 personally reviewed. No evident CPA, IAC, or labyrinthine mass or enhancement. Findings unremarkable by associated report. 10 point Review of Systems was normal except for pertinent positives and negatives included in the History of Present Illness. Past Medical and Surgical History There is no problem list on file for this patient. Current Outpatient Medications on File Prior to Visit Medication Sig Dispense Refill fish oil-omega-3 fatty acids 1,000 mg Capsule Take 2 g by mouth daily. cholecalciferol, Vitamin D3, 5,000 unit Tablet Take by mouth. cetirizine (ZYRTEC) 10 mg Tablet Take 10 mg by mouth daily. diphenhydrAMINE (BENADRYL) 25 mg Capsule Take 25 mg by mouth every 6 hours as needed for Itching. No current facility-administered medications on file prior to visit. Allergies: Zolpidem Surgical History: No past surgical history on file. Family and Social History Family History: No family history on file. Social History: Lives in [place] [id number] Social History Socioeconomic History Marital status: Single Spouse name: Not on file Number of children: Not on file Years of education: Not on file Highest education level: Not on file Occupational History Not on file Tobacco Use Smoking status: Never Smokeless tobacco: Never Substance and Sexual Activity Alcohol use: Not on file Drug use: Not on file Sexual activity: Not on file Other Topics Concern Not on file Social History Narrative Not on file Social Determinants of Health Financial Resource Strain: Not on file Food Insecurity: Not on file Transportation Needs: Not on file Physical Activity: Not on file Intimate Partner Violence: Not on file Housing Stability: Not on file Physical Exam Temperature: Heart Rate: Blood Pressure: Respiratory Rate: SpO2: General: Alert and oriented. No acute distress. Head and Face: Head is normocephalic, atraumatic. Facial resting tone symmetric. Eyes: Conjugate gaze, ocular motility intact bilaterally. No spontaneous or gaze evoked nystagmus. Neurologic: Cranial Nerves II-XII grossly intact and symmetric. Ears: External ears without deformity. See documentation of otomicroscopy below. Nose: External nose is midline without deformity or lesion. Normal exam of the septum and turbinates. Oral: There are no visible or palpable buccal, gingival, lingual, or palatal lesions. The floor of mouth is soft and flat. Oropharynx: Normal exam of the tonsils, tonsillar fossa, soft palate, and posterior pharynx. Salivary: Normal exam of the parotid and submandibular glands. Hem/Lymph/Imm: Neck supple without cervical mass or lymphadenopathy. Skin: Skin survey of the head and neck is without concerning lesion. MSK: Normal neck range of motion. No trismus. Resp: Breathing comfortably without stridor or retractions. Normal respirations. CV: Normal carotid pulses. Psych: Normal mood and affect. Labs and Imaging Significant lab values are as follows: N/a I reviewed the following imaging studies: MRI brain / IACs with contrast 08/10/2023 Findings unremarkable No evident CPA, IAC, or labyrinthine mass or enhancement. Procedures Ears examined and cleaned with aid of binocular microscopy. Right Ear: Auricle normal. External auditory canal clear. Drum is intact with normal mobility via pneumatic otoscopy. Middle ear is well aerated. Negative fistula test. Left Ear: Auricle normal. External auditory canal clear. Drum is intact with normal mobility via pneumatic otoscopy. Middle ear is well aerated. Negative fistula test. ASSESSMENT & RECOMMENDATIONS Anaid Valentin is a 73 y.o. female who presents with an approximate 4 year h/o fluctuating hearing loss, aural pressure and fluctuating nonpulsatile subjective roaring tinnitus, left ear. H/o suspected sudden SNHL left Jul 2023. No improvements in hearing following empiric trial oral prednisone. Serial audiometric testing revealing progressive low-frequency sensorineural hearing loss left ear since at least 2019. Most recent audiogram 08/23/2023 revealing normal sloping to mild high-frequency sensorineural hearing loss right. Moderate flat sensorineural hearing loss left. SRT 15 dB right, 50 dB left. Discrimination 100% at 55 dB right, 40% at 90 dB left. Normal bilateral tympanometry. As compared to prior audiogram 07/20/2023, thresholds and discrimination markedly diminished left ear, stable right. MRI brain / IACs with contrast. Unremarkable findings. I explained to the patient that history and objective findings to date do appear likely most consistent with atypical Meniere's / cochlear hydrops involving the left ear. Theorized origins were discussed, and the proposed pathophysiology with clinical implications was reviewed with the use of diagrams to illustrate relevant anatomy. We explained that we do not always understand the origins to this condition. We outlined that the clinical course in any individual patient can be highly unpredictable. Instructions for the conservative management of cochlear hydrops were discussed, to include a sodium restricted diet as we outlined to the patient today, avoidance of caffeine and alcohol, and maintenance of adequate oral hydration. We also briefly discussed common triggers. We also discussed the potential role for diuretic therapy, and reviewed the evidence and our experience in support of such intervention when indicated. More aggressive potential interventions for treatment additionally discussed, to include oral and/or intratympanic steroids. Patient not interested in our offer for empiric trial intratympanic steroid injection today. Following discussions, patient electing to proceed with empiric trial diuretic therapy with [id number]/37.5 mg daily. Potential side effects were outlined. We also discussed the diagnosis and underlying cause of tinnitus with the patient in detail with diagrams. Therapeutic options for the treatment of tinnitus were reviewed, to include dietary and lifestyle strategies, masking agents and sound therapies. We also discussed the limited evidence for benefit with various medication and supplement options. Tinnitus maskers, tinnitus retraining therapy or cognitive behavioral therapy also discussed as options for treatment in cases of limiting tinnitus. We also discussed the use of hearing aids for the management of tinnitus when indicated. We have also discussed the relationship between tinnitus and stress, anxiety and depression. Reported tinnitus is not particularly limiting or bothersome at this time. Continue observation for now. Hearing aid candidacy additionally discussed. Patient medically cleared for amplification. Given diminished discrimination left ear, discussed the potential challenges with conventional amplification. If conventional hearing aid was not effective, alternative auditory rehabilitation options also reviewed, to include CROS hearing aid system, osseointegrated bone-conduction hearing device, as well as possible cochlear implantation. Patient to consider her options regarding hearing aid trial. Will plan follow-up in approximately 3 months with repeat AE, in coordination with recommended electrocochleography (ECoG) testing. Indications for early return were reviewed. Patient verbally expressed understanding and was in agreement with the plan as outlined above. Our contact information was provided should any significant questions, concerns or problems arise prior to planned follow-up. Thank you for this interesting consultation and for allowing us to participate in this patient's care. The total time spent for chart review, history, examination, counseling, education, and documentation was 60 minutes. Parth Bear MD Otology / Neurotology Otolaryngology - Head & Neck Surgery 09/27/23 7:31 PM documented in this encounter Plan of Treatment Upcoming Encounters Date Type Department Care Team (Late st Contact Info) Description 06/04/2024 9:30 AM EDT Office Visit Audiology at [address] [phone] Ailyn Chun [facility] [place] [address] 06/04/2024 12:30 PM EDT Office Visit Audiology at [address] [place] [phone] Jeni Mcdonnell, [facility] [place] [address] 07/04/2024 10:20 AM EST Office [place] [phone] Parth Bear MD [facility] [place] [address] documented as of this encounter Visit Diagnoses Diagnosis Cochlear hydrops of left ear Asymmetrical sensorineural hearing loss Sensorineural hearing loss, asymmetrical Tinnitus of both ears Unspecified tinnitus documented in this encounter Care Teams Marketing Strategy Analyst Relationship Specialty Start Date End Date Hi Valenzuela MD [address] [place] [id number] PCP - General Family Medicine 08/26/23 documented as of this encounter
--- OUTSIDE RECORDS SUMMARY | 2024-05-22 15:27 | XMS_ITS | Encounter Summary ---
Author Organization [facility] [place] [address] [address] Care Team Providers Care Hr Payroll Coordinator Name Role Phone Amador Holland MD Primary Care Provider [phone] Encounter Details Date Type Department Care Team (Late st Contact Info) Description 02/08/2018 11:00 AM EDT Office Visit [place] [address] Emily Braga, ASSISTANT SALES MANAGER [address] [place] [address] Diarrhea, unspecified type; Bloating Social History Tobacco Use Types Packs/Day Years [...] - Inhaled Oxygen Concentration - - Weight 54.9 kg (121 lb) 02/08/2018 10:49 AM EDT Height 160 cm (5' 3) 02/08/2018 10:49 AM EDT Body Mass Index 21.43 02/08/2018 10:49 AM EDT documented in this encounter Patient Instructions * Patient Instructions* Emily Braga APRN - 02/08/2018 11:00 AM EDT 1. Reintroduce one food at a time to identify 2. Follow up as needed documented in this encounter Progress Notes * Emily Braga APRN - 02/08/2018 11:00 AM EDT STONEMASON: Emily Braga APRN PCP: Amador Holland MD REQUESTING PROVIDER: Loan Ward MD REASON FOR VISIT This is a 67 y.o. female with a history significant for HLD. She is returning to me today in followup. GI PROBLEM LIST 1. DIARRHEA --Fecal calprotectin; normal --DIET/LIFESTYLE *Low-FODMAP; beneficial --MEDICATION TRIALS *Loperamide; hasn't needed INTERVAL HISTORY- 02/08/18 Just started reintroducing wheat into her diet. Her stools have starting sinking again. Reintroduced small amount of lactose. Stools have become more formed. Moving bowels once a day. Stools have been more consistent. Denies fecal urgency. Symptoms have improved. Followed the low FODMAP diet for three weeks. Once she got through the first week, she was able to determine what foods she could eat. HPI COMMENTS Onset of symptoms August 2016. I've felt good throughout this whole thing. Woke up and had diarrhea. This has persisted since that day. Stool studies have been negative. She was empirically treated for giardia. She did not notice any improvement after treatment. She started taking fish oil priorto the onset of symptoms. Not aware of any other changes. No recent camping or travel history. Has tried eliminating lactose for approximately 2 weeks. This didn't make any difference at all. Has not eliminated gluten. Has been limiting milk and cheese. Post-prandial borborygmi. Bloating andgas. Stools are typically type #6. Floating. May move bowels 1-3 times during the day. It's all clustered in the morning time. Denies abdominal pain. Denies abdominal cramping. May have initially had abdominal cramping. Fecal urgency. I can wait a little bit longer now. Denies fecal incontinence. Denies blood or mucus in stool. Has actually been needing to push more recently. Has recently lost weight, but she has been trying to reduce cholesterol with diet and has increasedphysical activity. Has lost maybe 6-7 lbs since the onset of symptoms. Last colonoscopy 8 or 9 years ago. Good appetite. I went for a little while without a good appetite. Denies early satiety. Denies nausea and vomiting. She admits to aleve for headaches. May take this 3-4 times per month no more than that. Denies dysphagia, odynophagia, and globus. Denies reflux and regurgitation. She did take probiotics for one month. No relief. Prior to the onset of symptoms she did not have GI issues. No anemia. ROS Notable for the gastrointestinal symptoms as described above. CONSTITUTIONAL: Denies anorexia, fever, or unintended weight change ALL/IMMUNO: Seasonal allergies. Denies frequent colds. ALLERGIES Allergies Allergen Reactions ??? Zolpidem CURRENT MEDICATIONS Medications reviewed and reconciled in e-DH Current Outpatient Prescriptions: ??? fish oil-omega-3 fatty acids 1,000 mg Capsule, Take 2 g by mouth daily., Disp: , Rfl: ??? cholecalciferol, Vitamin D3, 5,000 unit Tablet, Take by mouth., Disp: , Rfl: ??? cetirizine (ZYRTEC) 10 mg Tablet, Take 10 mg by mouth daily., Disp: , Rfl: ??? diphenhydrAMINE (BENADRYL) 25 mg Capsule, Take 25 mg by mouth every 6 hours as needed for Itching., Disp: , Rfl: MEDICAL HISTORY 1. 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 Life partner. Has 1 son and one daughter. HABITS Denies tobacco use. Occasional alcohol use. Denies using other substances. FAMILY HISTORY Mother- bowel disorder. ?IBS Son- bowel disorder. ?IBS Denies family history of celiac disease, esophageal cancer, stomach cancer, colon cancer, pancreatic or liver issues, and IBD. PHYSICAL EXAM: Most Recent Vitals: 02/08/18 1049 BP: 119/52 Pulse: 62 Height: Height: 160 cm (5' 3) Weight: Weight: 54.9 kg (121 lb) Body mass index is 21.43 kg/(m^2). GENERAL: Healthy-appearing in no acute distress. Appears stated age. Appropriate weight for height. NEURO: Alert and oriented to person, place, time, and situation. Cranial nerves II-XII intact. PSYCH: Mood appropriate. Good eye contact. Normal interaction. Answers all questions appropriately. LABS: ASSESSMENT 1. DIARRHEA; Improved Followed low-FODMAP diet since our last visit. Has only just started reintroducing gluten and some lactose. Tolerating well. Symptoms have improved with low-FODMAP diet. No need for further testing. Recommend utilizing low- FODMAP diet as needed for recurrent symptoms. Consider utility of HBT. Fecal calprotectin negative. Ddx: post-infectious diarrhea, SIBO/dysbiosis, IBS 2. BLOATING: Improved PLAN 1. Reintroduce one food at a time utilizing low-FODMAP protocol 2. GIF as needed Patient agrees with the above plan. I did my best to answer her questions. TIME SPENT WITH PATIENT 15 minutes of this 16 minute visit were spent in [id number] discussion and counseling the patientas detailed per above. SignedEmily APRN 02/08/18 11:13 AM Section of Gastroenterology & Hepatology [facility] documented in this encounter Plan of Treatment Upcoming Encounters Date Type Department Care Team (Late st Contact Info) Description 06/04/2024 9:30 AM EDT Office Visit Audiology at [address] [phone] Ailyn Chun [facility] [place] [address] 06/04/2024 12:30 PM EDT Office Visit Audiology at [address] [phone] Jeni Mcdonnell [facility] [place] [address] 07/04/2024 10:20 AM EST Office Visit [place] [phone] Parth Bear MD [facility] [place] [address] documented as of this encounter Visit Diagnoses Diagnosis Diarrhea, unspecified type Bloating Flatulence, eructation, and gas pain documented in this encounter Care Teams Hr Payroll Coordinator Relationship Specialty Start Date End Date Amador Holland MD [address] [address] PCP - General 07/07/10 08/25/23 documented as of this encounter
--- OUTSIDE RECORDS SUMMARY | 2024-05-22 15:27 | XMS_ITS | Encounter Summary ---
Author Organization [facility] Address [address] [place] [address] Care Team Providers Care Compliance Coordinator Name Role Phone Kimberlee Watters MD Primary Care Provider Unavail Marissa Resendez Primary Care Provider [phone] Encounter Details Date Type Department Care Team (Late st Contact Info) Description 06/04/2015 Historical Results Only [facility] [place] Radiology Results [address] [place], [place] [address] Marissa Elliott PA [address] [place], [place] Social History Tobacco Use Types Packs/Day Years Used Date Smoking Tobacco: Never Assessed Sex and Gender Information Value Date Recorded Sex Assigned at Not on file Gender Identity Not on file Sexual Orientation Not on file documented as of this encounter Plan of Treatment Not on file documented as of this encounter Procedures Procedure Name Priority Date/Time Associated Diagnosis Comments MA BREAST SCREENING CAMERON BILATERAL 06/04/2015 13:31 EDT documented in this encounter Results * MA BREAST SCREENING CAMERON BILATERAL (06/04/2015 13:31 EDT) Anatomical Region Laterality Modality Breast Bilateral Other 06/04/2015 13:3 1 EDT Narrative 06/06/2015 14:10 EDT ? EXAM: MAMMOGRAM/MAMMO BILATERAL SCREEN W ??EX. D/ (1331) ? CLINICAL INFORMATION: ? Z12.31 ?SCREENING ? TECHNIQUE: ??Full field digital whole breast 2D (C-view) and 3D CC and ? MLO views of both breasts were obtained. CAD technology was utilized. ? INDICATION: ??Screening ? FINDINGS: ??The fibroglandular patterns of the breasts are normal. ? There has been no change when compared to previous mammograms and ? there is no mammographic evidence of cancer. The breasts are of ? heterogeneous density, which limits the sensitivity of mammography for ? the detection of malignancy. There are post-therapeutic changes in the ? right breast. ? FINAL ASSESSMENT: ??BILATERAL BREAST - Category 1 - Negative. Routine ?mammographic follow-up is recommended. ? These results will be communicated to your patient via a lay letter ? from Radiology. ??If any additional imaging is needed we will contact ? your patient directly. ? AMD:kad ?Reported By: Stas Eckert MD ? CC: ? Transcribed Date/Time: 06/06/2015 (1410) ? Pickling Machine Operator: BERNARDO ? Printed Date/Time: 01/23/2019 (1546) ? PAGE 1 ? Signed Report ? Procedure Note Stas Eckert MD - 06/19/2019 EXAM: MAMMOGRAM/MAMMO BILATERAL SCREEN W EX. D/ (7611) CLINICAL INFORMATION: Z12.31 SCREENING TECHNIQUE: Full field digital whole breast 2D (C-view) and 3D CCand MLO views of both breasts were obtained. CAD technology wasutilized. INDICATION: Screening FINDINGS: The fibroglandular patterns of the breasts are normal. There has been no change when compared to previous mammograms and there is no mammographic evidence of cancer. The breasts are of heterogeneous density, which limits the sensitivity of mammographyfor the detection of malignancy. There are post-therapeutic changes inthe right breast. FINAL ASSESSMENT: BILATERAL BREAST - Category 1 - Negative.Routine mammographic follow-up is recommended. These results will be communicated to your patient via a lay letter from Radiology. If any additional imaging is needed we willcontact your patient directly. AMD:radha Reported By: Stas Eckert MD CC: Transcribed Date/Time: 06/06/2015 (1410) Pickling Machine Operator: BERNARDO Printed Date/Time: 01/23/2019 (9198) PAGE 1 Signed Report Marissa SALDIVAR IMJt MAMMOGRAPHY JENIFFERWyatt SHELLY documented in this encounter Visit Diagnoses Not on filedocumented in this encounter Care Teams Compliance Coordinator Relationship Specialty Start Date End Date Kimberlee Watters MD PCP - General 11/29/13 06/07/16 Marissa Elliott PA PCP - General 06/08/16 06/01/21 documented as of this encounter
--- OUTSIDE RECORDS SUMMARY | 2024-05-22 15:27 | XMS_ITS | Encounter Summary ---
Author Organization [facility] [place] [address] Care Team Providers Care Online Media Buyer Name Role Phone Hi Valenzuela MD Primary Care Provider [phone] Encounter Details Date Type Department Care Team (Latest Contact Info) Description 09/28/2023 Travel Social History Tobacco Use Types Packs/Day Years [...] 9:30 AM EDT Office Visit Audiology at [address] [phone] Ailyn Chun [facility] [address] 06/04/2024 12:30 PM EDT Office Visit Audiology at [address] [phone] Jeni Mcdonnell [facility] [place] [address] 07/04/2024 10:20 AM EST Office Visit [place] [phone] Parth Bear MD [facility] [place] [address] documented as of this encounter Visit Diagnoses Not on filedocumented in this encounter Care Teams Online Media Buyer Relationship Specialty Start Date End Date Hi Valenzuela MD [address] [place] [address] PCP - General Family Medicine 08/26/23 documented as of this encounter
--- OUTSIDE RECORDS SUMMARY | 2024-05-22 15:27 | XMS_ITS ---
Author Organization Unknown ALLERGIES AND ADVERSE REACTIONS No information ASSESSMENT No information CHIEF COMPLAINT No information MEDICATIONS No information OBJECTIVE DATA No information PHYSICAL EXAMINATION No information TREATMENT PLAN Planned Care Start Date Provider Encounter for Check-up [id number] PROBLEMS No information RESULTS No information REVIEW OF SYSTEMS No information SUBJECTIVE DATA No information VITAL SIGNS No information
--- OUTSIDE RECORDS SUMMARY | 2024-05-22 15:27 | XMS_ITS | Encounter Summary ---
[place] [address] Care Team Providers Care Apprentice Lineman Third Step Name Role Phone Hi Valenzuela MD Primary Care Provider [phone] Encounter Details Date Type Department Care Team (Late st Contact Info) Description 09/26/2023 Telephone [place] [phone] Rowdy Garcia Social History Tobacco Use Types Packs/Day Years Used Date Smoking Tobacco: Never Smokeless Tobacco: Never Sex and Gender Information Value Date Recorded Sex Assigned at Not on file Gender Identity Not on file Sexual Orientation Not on file documented as of this encounter Miscellaneous Notes * Telephone Encounter - Rowdy Garcia - 09/26/2023 1:07 PM EST --Faxed records request:-- ATTN: [facility] - Audiology We have received a referral for the following patient: Name: Anaid Valentin Sex: F : 1950 Dr. Bear is In need of the following records to be sent so that they can be reviewed: Audiogram done 2019 Please forward these records to [facility] to the attention of Dr. Parth Bear at [phone] If you are unable to fax the records, please send them via mail to: [facility] Department of Otolaryngology [address] [place] [id number] documented in this encounter Plan of Treatment Upcoming Encounters Date Type Department Care Team (Late st Contact Info) Description 06/04/2024 9:30 AM EDT Office Visit Audiology at [address] [phone] Ailyn Chun AUD [facility] [place] [address] 06/04/2024 12:30 PM EDT Office Visit Audiology at [address] [phone] Jeni Mcdonnell [facility] [place] [address] 07/04/2024 10:20 AM EST Office [place] [phone] Parth Bear MD [facility] [place] [address] documented as of this encounter Visit Diagnoses Not on filedocumented in this encounter Care Teams Apprentice Lineman Third Step Relationship Specialty Start Date End Date Hi Valenzuela MD [address] [place] [address] PCP - General Family Medicine 08/26/23 documented as of this encounter
--- OUTSIDE RECORDS SUMMARY | 2024-05-22 15:27 | XMS_ITS | Encounter Summary ---
Author Organization [facility] Address [address] [place] [address] Care Team Providers Care Gold Buyer Name Role Phone Unavailable Primary Care Provider Unavailabl e Encounter Details Date Type Department Care Team (Late st Contact Info) Description 12/22/2005 Before PRISM Converted Visit (Maple) [facility] - Maple conversion [address] [place] [address] Joseph Morataya MD [address] [place] [phone] Social History Tobacco Use Types Packs/Day Years Used Date Smoking Tobacco: Never Assessed Sex and Gender Information Value Date Recorded Sex Assigned at Not on file Gender Identity Not on file Sexual Orientation Not on file documented as of this encounter Progress Notes * Joseph Morataya MD - 07/25/2009 1231 EST [facility] PROGRESS/FOLLOWUP NOTE - 12/22/2005 PROBLEM: Followup posterior nasal obstruction. SUBJECTIVE: The patient complaining of loud snoring. No history of obstructive sleep apnea or daytime somnolence, morningheadache, or weight gain. She continues to complain of posterior nasal obstruction when blowing her nose hard or when trying to blow her nose under water. She points with her finger at the level of the soft palate. IMPRESSION: Snoring and posterior nasal obstruction secondary to lax tissue of the soft palate. PLAN: Options of treatment including UPPP, LAUP, somnoplasty, radiofrequency ablation, CPAP, and pillar implants are discussed with the patient. She is considering possible pillar implant procedure. She is made aware that this would not be covered by insurance. Instructional material is given to the patient. She will call back if she wishes to proceed. Signed by Joseph Morataya MD 12/28/2005 09:19 Cynthia Real MD Joseph Morataya MD - Joseph Morataya MD A - lgr Job ID: [id number] Document ID: [id number] cc: documented in this encounter Plan of Treatment Not on file documented as of this encounter Visit Diagnoses Not on filedocumented in this encounter
--- OUTSIDE RECORDS SUMMARY | 2024-05-22 15:27 | XMS_ITS | Encounter Summary ---
Author Organization [facility] Address [address] [place] [address] Care Team Providers Care Assembly Supervisor Name Role Phone Loan Ward MD Primary Care Provider [phone] Reason for Visit * Reason Onset Date Comments Appointment Related 06/04/2021 Encounter Details Date Type Department Care Team (Late st Contact Info) Description 06/04/2021 Telephone [facility] [place] ENT [address] [place] [address] Joseph Morataya MD [address] [facility] [address] [place] [address] Appointment Related Social History Tobacco Use Types Packs/Day Years Used Date Smoking Tobacco: Never Alcohol Use Standard Drinks/Week Comments Yes 0 (1 standard drink = 0.6 oz pur e alcohol) Sex and Gender Information Value Date Recorded Sex Assigned at Not on file Gender Identity Not on file Sexual Orientation Not on file documented as of this encounter Miscellaneous Notes * Telephone Encounter - Shweta Baumann - 06/04/2021 1652 EDT Patient found an ENT closer to her and wanted to make sure her appts were canceled. * Telephone Encounter - Shweta Baumann - 06/04/2021 1619 EDT Returning patient's voicemail, she didn't say what the phone call was in regards to though, just tocall her back. I called her back and left a message with Quentin to have patient call us back because patient had stepped out, Quentin said he'd have her call us back either tonight or tomorrow. documented in this encounter Plan of Treatment Not on file documented as of this encounter Visit Diagnoses Not on filedocumented in this encounter Care Teams Assembly Supervisor Relationship Specialty Start Date End Date Loan Ward MD [address] [place] [phone] PCP - General Family Medicine - Primary Care 06/02/21 documented as of this encounter
--- OUTSIDE RECORDS SUMMARY | 2024-05-22 15:27 | XMS_ITS | Encounter Summary ---
Author Organization [facility] [place] [address] Care Team Providers Care Hand Mold Maker Name Role Phone Hi Valenzuela MD Primary Care Provider [phone] Encounter Details Date Type Department Care Team (Latest Contact Info) Description 09/26/2023 Travel Social History Tobacco Use Types Packs/Day [...] 9:30 AM EDT Office Visit Audiology at [address] [phone] Ailyn Chun [facility] [place] [address] 06/04/2024 12:30 PM EDT Office Visit Audiology at [address] [phone] Jeni Mcdonnell [facility] [place] [address] 07/04/2024 10:20 AM EST Office Visit [place] [phone] Parth Bear MD [facility] [place] [address] documented as of this encounter Visit Diagnoses Not on filedocumented in this encounter Care Teams Hand Mold Maker Relationship Specialty Start Date End Date Hi Valenzuela MD [address] [place] [address] PCP - General Family Medicine 08/26/23 documented as of this encounter
--- OUTSIDE RECORDS SUMMARY | 2024-05-22 15:27 | XMS_ITS | Encounter Summary ---
Author Organization [facility] Address [address] [place] [address] Care Team Providers Care Lab Aide Name Role Phone Kimberlee Watters MD Primary Care Provider Marissa Gautam Primary Care Provider [phone] Encounter Details Date Type Department Care Team (Late st Contact Info) Description 09/25/2010 Historical Results Only [facility] Lab - Main [address] [phone] Irina Lindsay MD [address] [place] [phone] Social History Tobacco Use Types Packs/Day [...] Date/Time Associated Diagnosis Comments PAP TEST Routine 09/25/2010 documented in this encounter Results * PAP TEST (09/25/2010) 09/25/2010 09/26/2010 19: 04 EST Narrative [facility] - 09/29/2010 15:50 EST ----- ------- Name: ANAID ROJAS ? : [birth year] ?Age/Sex: 69/F ?Unit#: [id number] ? Loc: LAB.OPX ? Status: REG REF ?? Reg Date: 09/25/10 ? Pt.Phone Number: ? ----- ------- Specimen: [id number] ?STATUS: SOUT ?Spec Date:09/25/10 ? Physician Copies: ?Irina Lindsay MD ? Tissues: ? Cervical/Endo Pap ? CPT: 04360 ?? Units: ??1 ----- ------- ? CYTOLOGY DIAGNOSIS SPECIMEN ADEQUACY: ??Satisfactory for evaluation. Assessment of transformation zone not applicable (e.g. ??atrophy, vaginal sample, hysterectomy). GENERAL CATEGORIZATION: ?Negative for Intraepithelial Lesion or Malignancy DESCRIPTIVE DIAGNOSIS: ? Negative for Intraepithelial Lesion or Malignancy. RECOMMENDATIONS/COMMENTS: ?None. ----- ------- ORDER QUERIES: LMP: ? - ? Post ?PREVIOUS ATYPICAL: ?? BCP/HRT? ?? Rad Rx? ?? IUD?PAP PLUS HPV?REFLEX TO HR-HPV IF ASCUS ?? REFLEX TO HPV 16/18 IF HPV POS/PAP NEG ?? HPV REGARDLESS?RFLX HPV IF LSIL ?? IF ASCUS DO HPV? Signed Yanira Franco CT(ASCP) 09/29/10 By the signature above, the attending physician certifies that he/she has personally conducted a gross and/or microscopic examination of the described specimens and rendered or confirmed the above diagnosis. Test Performed by [facility], [address] [address] Loan Review Officer: Isa Seaman MD PHD ----- ------- Irina Lindsay MD PATHOLOGY ORDERABLES [facility] documented in this encounter Visit Diagnoses Not on filedocumented in this encounter Care Teams Lab Aide Relationship Specialty Start Date End Date Kimberlee Watters MD PCP - General 11/29/13 06/07/16 Marissa Elliott PA PCP - General 06/08/16 06/01/21 documented as of this encounter
--- OUTSIDE RECORDS SUMMARY | 2024-05-22 15:27 | XMS_ITS | Encounter Summary ---
Author Organization [facility] [place] [address] Care Team Providers Care Broom Machine Operator Name Role Phone Amador Holland MD Primary Care Provider [phone] Reason for Visit * Reason Comments GI Problem * Consultation (Routine) - Closed Specialty Diagnoses / Procedures Referred By Bryan damico Referred To Contact Gastroenterology Diagnoses persistent diarrhea Loan Ward MD [address] [place] [address] [facility] [address] [place] [address] Referral ID Status Reason Start Date Expiration Date V isits Requested Visits Authorized [id number] Closed Consult, Test & Treat Connection [facility] 12/10/2017 12/10/2018 1 1 Encounter Details Date Type Department Care Team (Late st Contact Info) Description 01/10/2018 2:00 PM EDT Office [place] [phone] Emily Braga, SECONDARY SET UP MAN [address] [address] Diarrhea, unspecified type; Bloating Social History Tobacco Use Types Packs/Day Years Used Date Smoking Tobacco: Never Smokeless Tobacco: Never Sex and Gender Information Value Date Recorded Sex Assigned at Not on file Gender Identity Not on file Sexual Orientation Not on file documented as of this encounter Last Filed Vital Signs Vital Sign Reading Time Taken Comments Blood Pressure 116/70 01/10/2018 2:01 PM EDT Pulse 76 01/10/2018 2:01 PM EDT Temperature - - Respiratory Rate - - Oxygen Saturation - - Inhaled Oxygen Concentration - - Weight 55.1 kg (121 lb 6.4 oz) 01/10/2018 2:01 P M EDT w/ shoes Height 160 cm (5' 3) 01/10/2018 2:01 PM EDT Body Mass Index 21.51 01/10/2018 2:01 PM EDT documented in this encounter Patient Instructions * Patient Instructions* Emily Braga APRN - 01/10/2018 2:00 PM EDT 1. Low-FODMAP diet x 2-4 weeks. Gradually reintroduce one food at a time to identify triggers. 2. Stool study at your convenience. If you do not hear from me within 2 weeks of submitting the stool study, please call or send a message. *We are going to rule out inflammation in your intestine. 3. Limit fiber to 15-20 grams per day 4. Imodium 1-2 tablets four times daily as needed for diarrhea 5. Follow up approximately 4-6 weeks. *Most common trigger foods; gluten, lactose, high fructose corn syrup, sugar alcohols, dried beans,cruciferous veggies (broccoli, cabbage, cauliflower), onions, garlic, and peppers. *The gut microbiome may be playing a role. Since this is such a complex and diverse system, we havenot yet been able to fully explain this relationship. *3-5 pounds of bacteria in your GI tract- 100 trillion cells- more DNA than your own genome. *Imbalance in the gut microbiome can either result in diarrhea or constipation Fermentable sugars found in many carbohydrate rich foods (i.e., gluten, lactose, dried beans) feed the bacteria in your GI tract (fermentation) and pulls water into the intestine= more bloating and gas. documented in this encounter Progress Notes * Emily Braga APRN - 01/10/2018 2:00 PM EDT BAKERY CHEF: Emily Braga APRN PCP: Amador Holland MD REQUESTING PROVIDER: Loan Ward MD REASON FOR CONSULTATION This is a 67 y.o. female with a history significant for HLD. I am seeing her as a new patient todayin consult for diarrhea. GI PROBLEM LIST 1. DIARRHEA HPI COMMENTS Onset of symptoms August 2016. [...] Denies anorexia, fever, or unintended weight change EYES: Denies red or painful eyes ENT: Denies oral ulcers, dysphagia, odynophagia, globus. RESPIRATORY: Denies cough, shortness of breath, wheezing CV: Denies palpitations, chest pain. : Denies dysuria, urinary incontinence, or dyspareunia. MUSC/SKELETAL: Denies chronic joint pains or history of inflammatory arthritis. INTEGUMENTARY: Denies recent skin rash or lesions. NEURO: Denies neuropathy, loss of sensation, facial drooping or unilateral weakness. PSYCH: Denies psychiatric problems. ENDO: Denies frequent urination and excessive hunger or thirst. HEM/LYMPH: Denies easy bleeding or bruising. ALL/IMMUNO: Seasonal allergies. Denies frequent colds. ALLERGIES Allergies Allergen Reactions ??? Zolpidem CURRENT MEDICATIONS Medications reviewed and reconciled in e-DH Current Outpatient Prescriptions: ??? cholecalciferol, Vitamin D3, 5,000 unit Tablet, Take by mouth., Disp: , Rfl: ??? cetirizine (ZYRTEC) 10 mg Tablet, Take 10 mg by mouth daily., Disp: , Rfl: ??? diphenhydrAMINE (BENADRYL) 25 mg Capsule, Take 25 mg by mouth every 6 hours as needed for Itching., Disp: , Rfl: ??? fish oil-omega-3 fatty acids 1,000 mg Capsule, Take 2 g by mouth daily., Disp: , Rfl: MEDICAL HISTORY 1. 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 Life partner. Has 1 son and one daughter. HABITS Denies tobacco use. Occasional alcohol use. Denies using other substances. FAMILY HISTORY Mother- bowel disorder. ?IBS Son- bowel disorder. ?IBS Denies family history of celiac disease, esophageal cancer, stomach cancer, colon cancer, pancreatic or liver issues, and IBD. PHYSICAL EXAM: Most Recent Vitals: 01/10/18 1401 BP: 116/70 Pulse: 76 Height: Height: 160 cm (5' 3) Weight: Weight: 55.1 kg (121 lb 6.4 oz) (w/ shoes) Body mass index is 21.51 kg/(m^2). GENERAL: Healthy-appearing in no acute distress. Appears stated age. Appropriate weight for height. SKIN: No lesions, rashes, lumps, or angiomas on exposed skin. NECK: No adenopathy. No thyromegaly. HEENT: PERRL, EOMI, mucosa clear without ulceration or lesions, normal Dentition LUNGS: Clear to auscultation bilaterally COR: Regular, normal S1 and S2 without murmurs. ABD: Tympanic. Normal active BS. Soft, non-distended. No bruits. No tenderness to deep palpation inall 4 quadrants. No organomegaly. EXT: No cyanosis, clubbing, or edema. NEURO: Alert and oriented to person, place, time, and situation. Cranial nerves II-XII intact. PSYCH: Mood appropriate. Good eye contact. Normal interaction. Answers all questions appropriately. LABS: ASSESSMENT 1. DIARRHEA Does not meet UDAY IV criteria for IBS. She endorses her last colonoscopy was approximately 8 yearsago. Stool studies have been negative. Given the recent onset of symptoms and her age it is reasonable to perform a colonoscopy. She wishes to defer. She does not have any other red flag warning signs. Reasonable to perform a fecal calprotectin to rule out inflammatory etiology. Consider utility ofcolonoscopy. Consider utility of HBT. May take loperamide as needed. Ddx: post-infectious diarrhea, SIBO/dysbiosis, pancreatic etiology, microscopic colitis, IBS, IBD, BAM 2. BLOATING Consider utility of HBT. Consider utility of EGD/EUS/ Ddx: SIBO/dysbiosis, pancreatic etiology, biliary etiology, PLAN 1. Low-FODMAP diet x 2-4 weeks. Gradually reintroduce one food at a time to identify triggers. 2. Fecal calprotectin. External order provided 3. Limit fiber to 15-20 grams per day 4. Imodium 1-2 tablets four times daily as needed for diarrhea 5. Follow up approximately 4-6 weeks. I have provided her with my contact information. She has been encouraged to contact me with any questions or concerns. TIME SPENT WITH PATIENT 56 minutes of this 61 minute visit were spent in [id number] discussion and counseling the patientas detailed per above. Signed, Emily Braga APRN 01/10/18 3:01 PM Section of Gastroenterology & Hepatology [facility] documented in this encounter Plan of Treatment Upcoming Encounters Date Type Department Care Team (Late st Contact Info) Description 06/04/2024 9:30 AM EDT Office Visit Audiology at [address] [phone] Ailyn Chun [facility] [place] [address] 06/04/2024 12:30 PM EDT Office Visit Audiology at [address] [phone] Jeni Mcdonnell AUD [facility] [place] [address] 07/04/2024 10:20 AM EST Office [place] [phone] Parth Bear MD [facility] [place] [address] documented as of this encounter Visit Diagnoses Diagnosis Diarrhea, unspecified type Bloating Flatulence, eructation, and gas pain documented in this encounter Care Teams Broom Machine Operator Relationship Specialty Start Date End Date Amador Holland MD [address] [address] PCP - General 07/07/10 08/25/23 documented as of this encounter
--- OUTSIDE RECORDS SUMMARY | 2024-05-22 15:27 | XMS_ITS | Encounter Summary ---
Author Organization [facility] [place] [address] Care Team Providers Care Professional Golf Tournament Player Name Role Phone Amador Holland MD Primary Care Provider [phone] Encounter Details Date Type Department Care Team (Late st Contact Info) Description 02/09/2018 Telephone [place] [phone] Kwadwo Fuller RN Social History Tobacco Use Types Packs/Day Years Used Date Smoking Tobacco: Never Smokeless Tobacco: Never Sex and Gender Information Value Date Recorded Sex Assigned at Not on file Gender Identity Not on file Sexual Orientation Not on file documented as of this encounter Miscellaneous Notes * Telephone Encounter - Kwadwo Fuller RN - 02/09/2018 10:15 AM EDT Patient calls the office leaving a message on the RN voicemail stating that she was seen in the office on 02/08/18 and reviewed her AVS and her medications are incorrect stating that she is not takingany medications except for Vitamin D. Returned call to patient, was unable to reach patient by phone, left message on voicemail acknowledging her call and that medication list has been updated. documented in this encounter Plan of Treatment Upcoming Encounters Date Type Department Care Team (Late st Contact Info) Description 06/04/2024 9:30 AM EDT Office Visit Audiology at [address] [phone] Ailyn Chun, [facility] [place] [address] 06/04/2024 12:30 PM EDT Office Visit Audiology at [address] [phone] Jeni Mcdonnell [facility] [place] [address] 07/04/2024 10:20 AM EST Office [place] [phone] Parth Bear MD [facility] [place] [address] documented as of this encounter Visit Diagnoses Not on filedocumented in this encounter Care Teams Professional Golf Tournament Player Relationship Specialty Start Date End Date Amador Holland MD [address] [address] PCP - General 07/07/10 08/25/23 documented as of this encounter
--- OUTSIDE RECORDS SUMMARY | 2024-05-22 15:27 | XMS_ITS | Encounter Summary ---
Author Organization [facility] Address [address] [place] [address] Care Team Providers Care Transplant Surgeon Name Role Phone Marissa Elliott Primary Care Provider [phone] Encounter Details Date Type Department Care Team (Late st Contact Info) Description 10/07/2017 Historical Results Only [facility] [place] [address] [place], [place] [id number] Madonna Gaxiola PA [address] [place] [address] Social History Tobacco Use Types Packs/Day Years [...] Procedure Name Priority Date/Time Associated Diagnosis Comments INFLUENZA GERARDO - CV Routine 10/07/2017 16:46 EST documented in this encounter Results * INFLUENZA GERARDO - CV (10/07/2017 16:46 EST) INFLUENZA A - CV NEGATIVE NEGATIVE 10/07/2017 16:[address] [facility] INFLUENZA B - [facility] NEGATIVE NEGATIVE 10/07/2017 16:[address] [facility] 10/07/2017 16:4 6 EST 10/07/2017 16:46 EST Madonna SALDIVAR CHEMISTRY & BLOOD GA S ORDERABLES [facility] documented in this encounter Visit Diagnoses Not on filedocumented in this encounter Care Teams Transplant Surgeon Relationship Specialty Start Date End Date Marissa Elliott PA PCP - General 06/08/16 06/01/21 documented as of this encounter
--- OUTSIDE RECORDS SUMMARY | 2024-05-22 15:27 | XMS_ITS | Encounter Summary ---
Author Organization [facility] Address [address] [place] [address] Care Team Providers Care Curb Machine Operator Name Role Phone Kimberlee Watters MD Primary Care Provider [facility] Marissa Resendez Primary Care Provider [phone] Encounter Details Date Type Department Care Team (Late st Contact Info) Description 06/07/2016 Abstract [facility] [place] [address] [place], [place] [id number] Marissa Elliott PA [address] [place], [place] Social History Tobacco Use Types Packs/Day Years Used Date Smoking Tobacco: Never Assessed Sex and Gender Information Value Date Recorded Sex Assigned at Not on file Gender Identity Not on file Sexual Orientation Not on file documented as of this encounter Plan of Treatment Not on file documented as of this encounter Visit Diagnoses Not on filedocumented in this encounter Historical Medications * This list may reflect changes made after this encounter. Medication Sig Dispensed Refills Start Date End Date ciprofloxacin-dexamethas one (CIPRODEX) otic suspension Place 4 Drops in ear(s) 2 times daily. antipyrine-benzocaine 5.5-1.4 % drops Place in ear(s). MULTIVITAMIN ORAL Take by mouth. ammonium lactate (LAC-HYDRIN) 12 % cream Apply topically as needed. rub in to affected area well ergocalciferol (DRISDOL; VITAMIN D2) 50,000 unit capsule Take 50,000 Units by mouth once a week. added in this encounter Care Teams Curb Machine Operator Relationship Specialty Start Date End Date Kimberlee Watters MD PCP - General 11/29/13 06/07/16 Marissa Elliott PA PCP - General 06/08/16 06/01/21 documented as of this encounter
[2024-05-22 17:28] LABS: Hemoglobin A1C 5.9 % (<5.7)
[2024-05-22 18:44] LABS: Vitamin D 25 Total 106.3 ng/mL (30-100)
== END 2024-05-22 15:17 | disposition home or self-care (01) ==
LOC: NCHCN 15:16
PROVIDERS: PCP Family Medicine; Visit Provider Family Medicine
DX: R73.03 Prediabetes (principal)
CPT/HCPCS: 82306; 83036

== ENCOUNTER 2025-08-13 16:44 | Outpatient (REF) | payer MEDICARE, SELFPAY ==
[2025-08-13 21:40] LABS: Abs Immature Grans 0.01 10^3/uL (0.0-0.06); HCT 44.4 % (36.0-46.0); HGB 14.5 g/dL (11.2-15.7); Immature Grans % 0.1 %; MCH 30.7 pg (27.0-33.0); MCHC 32.7 % (32.0-36.0); MCV 94 fL (80-95); MPV 9.9 fL (8.0-11.0); Platelet Count 287 10^3/uL (130-400); RBC 4.72 10^6/uL (3.93-5.22); RDW 12.8 % (11.7-14.6); RDW-SD 44.6 fL; WBC 7.64 10^3/uL (4.4-10.8)
[2025-08-13 21:54] LABS: ALT 16 U/L (10-49); AST 22 U/L (<34); Albumin 4.0 g/dL (3.2-5.0); Alkaline Phosphatase 80 U/L (46-116); Anion Gap 7 mmol/L (3-11); BUN 16 mg/dL (9-23); Bilirubin, Total 0.4 mg/dL (0.2-1.2); CO2 29.0 mmol/L (20.0-31.0); Calcium 9.8 mg/dL (8.3-10.6); Chloride 105 mmol/L (98-107); Glucose 82 mg/dL (74-106); Magnesium 2.2 mg/dL (1.6-2.6); Potassium 4.5 mmol/L (3.5-5.1); Sodium 141 mmol/L (136-145); TSH (W/Ref FT4) 1.54 uIU/mL (0.55-4.78); Total Protein 6.6 g/dL (5.7-8.2)
== END 2025-08-13 16:45 | disposition home or self-care (01) ==
LOC: NCHCN 16:44
PROVIDERS: PCP Family Medicine; Visit Provider Family Medicine
DX: R53.82 Chronic fatigue, unspecified (principal); R19.7 Diarrhea, unspecified
CPT/HCPCS: 80053; 82784; 83516; 83735; 84443; 85025